=== PATIENT | female | born 1985 | race Caucasian/White ===

== ENCOUNTER 2017-11-30 19:19 | Emergency (ER) | payer BC ==
[~2017-11-30] VITALS: Ht 172.7 cm; Wt 104.4 kg
[2017-11-30 19:27] VITALS: BP 181/90; PULSE 88; RESP 16; TEMP 97.9; O2SAT 98
[2017-11-30 19:55] LABS: BILIRUBIN, URINE NEG (NEG); BLOOD, URINE LARGE (NEG); GLUCOSE,URINE NEG (NEG); KETONE, URINE NEG (NEG); NITRITE,URINE NEG (NEG); PH, URINE 5.5 (5.0-8.5); URINE LEUKOCYTE ESTERASE LARGE (NEG)
[2017-11-30 20:21] LABS: URINE COLOR YELLOW (YELLW/STRAW)
[2017-11-30 20:22] LABS: MUCUS URINE OCC /lpf (OCC); WHITE BLOOD CELL CLUMPS MOD
[2017-11-30] MEDS ORDERED: BIRTH CONTROL PILLS (20:22)
[2017-11-30 20:23] LABS: SQUAMOUS EPITHELIAL CELL URINE 0-5 /hpf (0-5)
[2017-11-30 20:24] LABS: AMORPHOUS SEDIMENT, URINE SMALL
[2017-11-30] MEDS ORDERED: MACR100C2 PO (20:46)
[2017-11-30] MEDS ORDERED: PHEN0.4T PO (20:46)
--- NOTE | 2017-11-30 20:46 | PD ---
HPI . Urinary symptoms Chief Complaint: Complaint Time Seen by Provider: 20:21 Travel History International Travel<30 days: No Contact w/Intl Traveler<30days: No Traveled to known affect area: No History of Present Illness HPI This patient presents with a chief complaint of dysuria, frequency, urgency and hematuria which started at 4:30 this afternoon. She also has suprapubic pain. She denies vomiting and she denies fever. She denies any previous similar history. She rates her pain 7/10. PFSH Past Medical History Genitourinary: Yes (CYSTIC LESION RIGHT OVARY) Tetanus Vaccination: > 5 Years Influenza Vaccination: Yes ?: Not LMP: 10/21/17 Past Surgical History Cholecystectomy: Yes Social History Alcohol Use: Yes (RARELY) Tobacco Use: No Substance Use: No Allergies-Medications (Allergen,Severity, Reaction): Coded Allergies: Iodinated Contrast- Oral and IV Dye (Verified Allergy, Severe, Hives, 11/30) Reported Meds & Prescriptions Reported Meds & Active Scripts Active Reported [ Control Pills] Review of Systems Except as stated in HPI: all other systems reviewed are Neg General / Constitutional: No: Fever, Chills Gastrointestinal: No: Nausea, Vomiting Genitourinary: Positive: Urgency, Frequency, Dysuria, Hematuria, Pelvic Pain Physical Exam Narrative GENERAL: Awake and alert and in no acute distress. SKIN: Warm and dry. HEAD: Normocephalic/atraumatic. EYES: Pupils are equal. Extraocular movements are intact. NECK: Normal range of motion. CARDIOVASCULAR: Regular rate and rhythm. RESPIRATORY: Nonlabored respirations. ABDOMEN: Suprapubic tenderness. No CVA tenderness. No guarding or rebound. MUSCULOSKELETAL: Atraumatic. NEUROLOGICAL: Nonfocal. PSYCHIATRIC: Appropriate mood and affect. Data Data Last Documented VS Vital Signs Date Time Temp Pulse Resp B/P (MAP) Pulse Ox O2 Delivery O2 Flow Rate FiO2 11/30/17 19:27 97.9 88 16 181/90 (120) 98 Orders Orders Urinalysis - C+S If Indicated (11/30/17 19:31) Urine Culture (11/30/17 19:34) Labs Laboratory Tests Test 11/30/17 19:34 Urine Color YELLOW Urine Turbidity SLIGHT Urine pH 5.5 Urine Specific [place] 1.002 Urine Protein 30 mg/dL Urine Glucose (UA) NEG mg/dL Urine Ketones NEG mg/dL Urine Occult Blood LARGE Urine Nitrite NEG Urine Bilirubin NEG Urine Leukocyte Esterase LARGE Urine RBC 20-24 /hpf Urine WBC 25-49 /hpf Urine WBC Clumps MOD Urine Squamous Epithelial Cells 0-5 /hpf Urine Amorphous Sediment SMALL Urine Mucus OCC /lpf Microscopic Urinalysis Comment CULTURE INDICATED MDM Medical Decision Making Medical Screen Exam Complete: Yes Emergency Medical Condition: Yes Differential Diagnosis Final differential diagnosis of urinary symptoms includes but is not limited to UTI, kidney stone, pyelonephritis, bacterial vaginosis, yeast infection, urinary retention Narrative Course This patient presents with symptoms compatible with urinary tract infection. UA>>large LE, 20-24 RBCs, 25-49 WBCs, mod WBC clumps She'll be treated with Macrobid and Pyridium. Diagnosis Primary Impression: Urinary tract infection Qualified Codes: N30.01 - Acute cystitis with hematuria Patient Instructions: General Instructions, Urinary Tract Infection in Women ( [place]) Med/Other Pt SpecificInfo: Prescription(s) given Scripts Phenazopyridine (Pyridium) 100 Mg Tab 200 MG PO Q8H Y for DYSURIA, #10 TAB 0 Refills Prov: Awilda Parra MD 11/30/17 Nitrofurantoin Monohydrate Macrocrystals (Macrobid) 100 Mg Cap 100 MG PO BID for Infection for 5 Days, #10 CAP 0 Refills Prov: Awilda Parra MD 11/30/17 Disposition: 01 DISCHARGE HOME Condition: Stable Awilda Parra MD Nov 30, 2017 20:46
== END 2017-11-30 21:06 | disposition home or self-care (01) ==
LOC: PHEFT 19:19
DX: N30.01 Acute cystitis with hematuria (principal); B96.20 Unspecified Escherichia coli [E. coli] as the cause of diseases classified elsewhere
CPT/HCPCS: 81001; 87077; 87086; 87186; 99283